=== PATIENT | female | born 2000 | race Caucasian/White ===

== ENCOUNTER → 2023-04-11 | Outpatient (CLI) | payer OTHER ==
--- NOTE | 2023-04-11 13:11 | XR ---
EXAMINATION TYPE: XR lumbar spine 2 or 3V DATE OF EXAM: 04/11/2023 CLINICAL HISTORY: pain TECHNIQUE: Three views of the lumbar spine are submitted. COMPARISON: None. FINDINGS: There are 5 lumbar type vertebral bodies identified. The lumbar spine shows satisfactory alignment w ithout evidence of acute fracture or dislocation. Vertebral body heights are within normal limits. Moderate degenerative narrowing L5-S1. The overlying soft tissue appears unremarkable. IMPRESSION: No acute fracture or dislocation is seen in the lumbar spine. ICD 10 NO FRACTURE, INITIAL EVALUATION
== END | disposition home or self-care (01) ==
LOC: RADXRMAIN 12:39
PROVIDERS: ATTEND Nurse Practitioner
DX: M54.50 Low back pain, unspecified (principal)
CPT/HCPCS: 72100

== ENCOUNTER → 2023-04-18 | Outpatient (CLI) | payer OTHER ==
[2023-04-18 20:12] LABS: Basophils # (A) 0.09 X 10*3/uL (0.00-0.10); Basophils % (A) 1.1 %; Eosinophils # (A) 0.05 X 10*3/uL (0.04-0.35); Eosinophils % (A) 0.6 %; HCT 39.6 % (37.2-46.3); Lymphocytes # (A) 1.94 X 10*3/uL (0.90-5.00); MCH 28.8 pg (27.0-32.0); MCHC 32.8 d/dL (32.0-37.0); MCV 87.6 FL (80.0-97.0); Mean Platelet Volume 9.9 FL (9.5-12.2); Monocytes # (A) 0.65 X 10*3/uL (0.20-1.00); NRBC Per 100 WBC 0 X 10*3/uL (0.00-0.01); Neutrophils # (A) 5.35 X 10*3/uL (1.80-7.70); Neutrophils % (A) 66.1 %; Platelet Count 383 X 10*3/uL (140-440); RBC 4.52 X 10*6/uL (4.10-5.20); RDW 13.3 % (11.5-14.5)
[2023-04-18 21:17] LABS: ALT 23 U/L (8-44); AST 21 U/L (13-35); Albumin 4.5 d/dL (3.8-4.9); Albumin/Globulin Ratio 1.32 Ratio (1.60-3.17); Alkaline Phosphatase 109 U/L (41-126); BUN/Creat Ratio 16.67 Ratio (12.00-20.00); Calcium 9.9 mg/dL (8.7-10.3); Carbon Dioxide 24.4 mmol/L (21.6-31.8); Chloride 100 mmol/L (96-109); Chol/HDL Ratio 3.32 Ratio; Globulin 3.4 d/dL (1.6-3.3); Glucose 85 mg/dL (70-110); LDL Cholesterol,Calculated 104.1 mg/dL (0.0-131.0); Potassium 4.2 mmol/L (3.5-5.5); Sodium 137 mmol/L (135-145); T4, Free (Free Thyroxine) 1.29 ng/dL (0.80-1.80); Total Bilirubin 0.4 mg/dL (0.3-1.2); Total Protein 7.9 d/dL (6.2-8.2)
== END | disposition home or self-care (01) ==
LOC: LABWHC1 13:28
PROVIDERS: ATTEND Nurse Practitioner
DX: Z13.220 Encounter for screening for lipoid disorders (principal); Z79.899 Other long term (current) drug therapy
CPT/HCPCS: 36415; 80053; 80061; 82306; 84439; 84443; 85025

== ENCOUNTER 2023-12-01 13:29 | Emergency (ER) | payer OTHER ==
[2023-12-01 14:05] VITALS: RESP 18; TEMP 98.7
[2023-12-01] MEDS: guaiFENesin-Coden 100-10MG/5ML 10 ML CUP PO ONE (14:42)
--- NOTE | 2023-12-01 14:43 | ED ---
URI HPI - General Chief Complaint: Upper Respiratory Infection Stated Complaint: Upper Resp Time Seen by Provider: 12/01/23 13:56 Source: patient, RN notes reviewed Mode of arrival: ambulatory Limitations: no limitations - History of Present Illness Initial Comments: This is a 23 year old female who presents to the emergency department for coughing, congestion, and shortness of breath. Symptoms began about 2 weeks ago. She was previously started on prednisone and Tessalon Perles for was thought to be bronchitis. She does have a couple days left of the prednisone and Tessalon Perles, however symptoms have persisted. She was then given a prescription for Augmentin, but was only prescribed this yesterday. Denies any history of asthma. She is concerned that symptoms do not seem to be improving. MD Complaint: cough, nasal congestion - Related Data Previous Rx's Medication Instructions Recorded Azithromycin [Zithromax] 250 mg PO DIRECTED 5 Days #6 tab 12/01/23 Codeine Phosphate/Guaifenesin 5 ml PO Q6H PRN #473 ml 12/01/23 [Codeine Phosphate/Guaifenesin 10-100 mg/5 ml] Allergies Allergy/AdvReac Type Severity Reaction Status Date / Time No Known Allergies Allergy Verified 12/01/23 13:51 Review of Systems ROS Statement: Those systems with pertinent positive or pertinent negative responses have been documented in the HPI. ROS Other: All systems not noted in ROS Statement are negative. Past Medical History Past Medical History: No Reported History History of Any Multi-Drug Resistant Organisms: None Reported Additional Past Surgical History / Comment(s): [place] teeth Past Psychological History: No Psychological Hx Reported Smoking Status: Never smoker Past Alcohol Use History: None Reported Past Drug Use History: None Reported General Exam Limitations: no limitations General appearance: alert, in no apparent distress Head exam: Present: atraumatic, normocephalic, normal inspection Respiratory exam: Present: normal lung sounds bilaterally. Absent: respiratory distress, wheezes, rales, rhonchi, stridor Cardiovascular Exam: Present: regular rate, normal rhythm, normal heart sounds. Absent: systolic murmur, diastolic murmur, rubs, gallop, clicks Neurological exam: Present: alert, oriented X3, CN II-XII intact Psychiatric exam: Present: normal affect, normal mood Skin exam: Present: warm, dry, intact, normal color. Absent: rash Course Vital Signs 12/01/23 12/01/23 12/01/23 13:47 15:45 15:53 Temperature 98.7 F Pulse Rate 110 H 107 H 110 H Respiratory 18 Rate Blood Pressure 144/88 O2 Sat by Pulse 98 Oximetry 12/01/23 17:20 Temperature 98.7 F Pulse Rate 98 Respiratory 18 Rate Blood Pressure 108/72 O2 Sat by Pulse 97 Oximetry Medical Decision Making - Medical Decision Making This is a 23-year-old female who presents to the emergency department for coughing, congestion, and shortness of breath. Was pt. sent in by a medical professional or institution? @ -No Did you speak to anyone other than the patient for history? @ -No Did you review nursing and triage notes? @ -Yes, and I agree, it is accurate with regards to the patient's symptoms. Were old charts reviewed? @ -No Differential Diagnosis? @ -Differential Cough: Influenza, Covid, RSV, croup, allergic rhinitis, GERD, pneumonia, bronchitis, COPD, viral pharyngitis, streptococcal pharyngitis, this is not meant to be an all-inclusive list. EKG interpreted by me (3pts min.)? @ -Not obtained X-rays interpreted by me (1pt min.)? @ -Chest x-ray obtained. My interpretation identifies a left lower lobe opacity. CT interpreted by me (1pt min.)? @ -Not obtained U/S interpreted by me (1pt. min.)? @ -Not obtained What testing was considered but not performed? (CT, X-rays, U/S, labs)? Why? @ -None What meds were considered but not given? Why? @ -None Did you discuss the management of the patient with other professionals? @ -No Did you reconcile home meds? @ -No Was smoking cessation discussed for >3mins.? @ -No Was critical care preformed (if so, how long)? @ -No Were there social determinants of health that impacted care today? How? (Homelessness, low income, unemployed, alcoholism, drug addiction, transportation, low edu. Level, literacy, decrease access to med. care, prison, rehab)? @ -No Was there de-escalation of care discussed even if they declined? (Discuss DNR or withdrawal of care, Hospice)? @ -No What co-morbidities impacted this encounter? (DM, HTN, Smoking, COPD, CAD, Cancer, CVA, Hep., AIDS, mental health diagnosis, sleep apnea, morbid obesity)? @ -None Was patient admitted / discharged? @ -Discharged. Covid, influenza, and RSV testing were negative. Chest x-ray reveals a left lower lobe airspace opacity concerning for pneumonia. Cough medication and DuoNeb breathing treatment administered in the emergency department with some improvement in symptoms. Prescription for azithromycin and codeine/guanfacine cough syrup provided with dosing instructions reviewed. She has an albuterol inhaler at home she can continue using if needed. Patient discharged home in stable condition and will follow up with her primary care provider. Undiagnosed new problem with uncertain prognosis? @ -None Drug Therapy requiring intensive monitoring for toxicity (Heparin, Nitro, Insulin, Cardizem)? @ -None Were any procedures done? @ -None Diagnosis/symptom? @ -Pneumonia Acute, or Chronic, or Acute on Chronic? @ -Acute Uncomplicated (without systemic symptoms) or Complicated (systemic symptoms)? @ -Uncomplicated Side effects of treatment? @ -None Exacerbation, Progression, or Severe Exacerbation] @ -Not applicable Poses a threat to life or bodily function? @ -No Return precautions reviewed in depth, the patient is instructed to return to the emergency department with any new, worsening, or concerning symptoms. Patient verbalized understanding. This case was discussed in detail with the attending ED physician, Dr. Henson Presentation, findings, and treatment plan discussed in detail as well. - Lab Data Lab Results 12/01/23 Range/Units 14:40 Influenza Type A (PCR) Not Detected (Not Detectd) Influenza Type B (PCR) Not Detected (Not Detectd) RSV (PCR) Not Detected (Not Detectd) SARS-CoV-2 (PCR) Not Detected (Not Detectd) - Radiology Data Radiology results: report reviewed, image reviewed Disposition Clinical Impression: Pneumonia Disposition: HOME SELF-CARE Instructions (If sedation given, give patient instructions): Pneumonia (ED) Additional Instructions: Return to the emergency department with any new, worsening, or concerning symptoms. Take the new antibiotic as prescribed for 5 days. Continue taking the Augmentin antibiotic prescribed by your primary care provider as well. You can use the cough medication every 4-6 hours as needed. Be aware that this may make you drowsy. Follow up with your primary care provider in 1-2 days. Prescriptions: Codeine Phosphate/Guaifenesin [Codeine Phosphate/Guaifenesin 10-100 mg/5 ml] 5 ml PO Q6H PRN #473 ml PRN Reason: Cough Azithromycin [Zithromax] 250 mg PO DIRECTED 5 Days #6 tab Is patient prescribed a controlled substance at d/c from ED?: Yes When asked, does pt state using other controlled substances?: No If prescribed controlled substance>3 days was MAPS reviewed?: Prescribed <3 Days Referrals: Pebbles Rajput [Primary Care Provider] - 1-2 days Time of Disposition: 15:51
--- NOTE | 2023-12-01 15:08 | XR ---
EXAMINATION TYPE: XR chest 2V DATE OF EXAM: 12/01/2023 3:03 PM CLINICAL INDICATION:Female, 23 years old with history of Cough, YANDY; COMPARISON: None TECHNIQUE: XR chest 2V Frontal and lateral views of the chest. FINDINGS: Lungs/Pleura: T left lower lung airspace opacities here is no evidence of pleural effusion, right foc al consolidation, or pneumothorax. Pulmonary vascularity: Unremarkable. Heart/mediastinum: Cardiomediastinal silhouette is unremarkable. Musculoskeletal: No acute osseous pathology. IMPRESSION: Left lower lobe airspace opacities concerning for pneumonia.e
[2023-12-01] MEDS: IPRATROPIUM-ALBUTEROL 3 ML NEB INHALATION STA (15:45)
[2023-12-01 17:32] VITALS: BP 108/72; PULSE 98
== END 2023-12-01 17:20 | disposition home or self-care (01) ==
LOC: EC 13:29
DX: J18.9 Pneumonia, unspecified organism (principal); Z20.822 Contact with and (suspected) exposure to COVID-19
CPT/HCPCS: 71046; 87636; 94640; 99285

== ENCOUNTER 2024-10-02 19:04 | Emergency (ER) | payer OTHER ==
--- NOTE | 2024-10-02 19:56 | XR ---
EXAMINATION TYPE: XR chest 2V DATE OF EXAM: 10/02/2024 7:38 PM COMPARISON: None. CLINICAL INDICATION: Female, 24 years old with history of sob, TECHNIQUE: XR chest 2V view(s) obtained. FINDINGS: The heart size is normal. The pulmonary vasculature is normal. The lungs are clear. IMPRESSION: 1. No acute pulmonary process. [facility], , 10/02/2024 7:54 PM
--- NOTE | 2024-10-02 20:13 | ED ---
General Adult HPI - General Stated complaint: SOB, Chest pain Time Seen by Provider: 10/02/24 19:15 Source: patient, RN notes reviewed Mode of arrival: ambulatory Limitations: no limitations - History of Present Illness Initial comments: 24-year-old female presents emergency department chief complaint of shortness of breath. Patient states this started after taking tramadol yesterday states it did resolve but states she took tramadol again today and to happen again. Patient states because her chest feel tight. Denies any palpitations states his first time she is ever taken tramadol. Patient denies any fevers or chills no cough or cold-like symptoms today states that she recently had a URI. Denies any leg pain or leg swelling no abdominal complaints no other associated symptoms. - Related Data Previous Rx's Medication Instructions Recorded Azithromycin [Zithromax] 250 mg PO DIRECTED 5 Days #6 tab 12/01/23 Codeine Phosphate/Guaifenesin 5 ml PO Q6H PRN #473 ml 12/01/23 [Codeine Phosphate/Guaifenesin 10-100 mg/5 ml] Allergies Allergy/AdvReac Type Severity Reaction Status Date / Time No Known Allergies Allergy Verified 10/02/24 20:11 Review of Systems ROS Statement: Those systems with pertinent positive or pertinent negative responses have been documented in the HPI. ROS Other: All systems not noted in ROS Statement are negative. Past Medical History Past Medical History: No Reported History History of Any Multi-Drug Resistant Organisms: None Reported Additional Past Surgical History / Comment(s): [place] teeth Past Psychological History: No Psychological Hx Reported Smoking Status: Never smoker Past Alcohol Use History: None Reported Past Drug Use History: None Reported General Exam Limitations: no limitations General appearance: alert, in no apparent distress Head exam: Present: atraumatic, normocephalic, normal inspection Eye exam: Present: normal appearance, PERRL, EOMI. Absent: scleral icterus, conjunctival injection, periorbital swelling ENT exam: Present: normal exam, normal oropharynx, mucous membranes moist Neck exam: Present: normal inspection, full ROM. Absent: tenderness, meningismus, lymphadenopathy Respiratory exam: Present: normal lung sounds bilaterally. Absent: respiratory distress, wheezes, rales, rhonchi, stridor Cardiovascular Exam: Present: regular rate, normal rhythm, normal heart sounds. Absent: systolic murmur, diastolic murmur, rubs, gallop, clicks GI/Abdominal exam: Present: soft, normal bowel sounds. Absent: distended, tenderness, guarding, rebound, rigid Course Vital Signs 10/02/24 20:11 Temperature 98.2 F Pulse Rate 95 Respiratory 22 Rate Blood Pressure 120/58 O2 Sat by Pulse 99 Oximetry EKG Findings - EKG Comments: EKG Findings:: EKG performed at 20: 00 sinus rhythm rate of 83 IN 121 QRS 93 QT/QTc 373/413 - EKG Results: EKG: interpreted by LOLA Medical Decision Making - Medical Decision Making Was pt. sent in by a medical professional or institution (JOHNSON Joseph, BOOK[employer]BILE DRIVER, urgent care, hospital, or correction...) When possible be specific @ -Urgent care Did you speak to anyone other than the patient for history (EMS, parent, family, police, friend...)? What history was obtained from this source @ -No Did you review nursing and triage notes (agree or disagree)? Why? @ -I reviewed and agree with nursing and triage notes Were old charts reviewed (outside hosp., previous admission, EMS record, old EKG, old radiological studies, urgent care reports/EKG's, correction records)? Report findings @ -No old charts were reviewed Differential Diagnosis (chest pain, altered mental status, abdominal pain women, abdominal pain men, vaginal bleeding, weakness, fever, dyspnea, syncope, headache, dizziness, GI bleed, back pain, seizure, CVA, palpatations, mental health, musculoskeletal)? @ -Medication reaction, drug reaction, URI EKG interpreted by me (3pts min.). @ -As above X-rays interpreted by me (1pt min.). @ -X-ray 2 view chest no acute process CT interpreted by me (1pt min.). @ -None done U/S interpreted by me (1pt. min.). @ -None done What testing was considered but not performed or refused? (CT, X-rays, U/S, labs)? Why? @ -None What meds were considered but not given or refused? Why? @ -None Did you discuss the management of the patient with other professionals (professionals i.e. JOHNSON Joseph, BOOKMOBILE DRIVER, lab, RT, psych nurse, social media executive, pyrometer operator, teacher, correction officer penitentiary, case management social worker)? Give summary @ -No Was smoking cessation discussed for >3mins.? @ -No Was critical care preformed (if so, how long)? @ -No Were there social determinants of health that impacted care today? How? (Homelessness, low income, unemployed, alcoholism, drug addiction, transportation, low edu. Level, literacy, decrease access to med. care, retirement, rehab)? @ -No Was there de-escalation of care discussed even if they declined (Discuss DNR or withdrawal of care, Hospice)? DNR status @ -No What co-morbidities impacted this encounter? (DM, HTN, Smoking, COPD, CAD, Cancer, CVA, ARF, Chemo, Hep., AIDS, mental health diagnosis, sleep apnea, morbid obesity)? @ -None Was patient admitted / discharged? Hospital course, mention meds given and route, prescriptions, significant lab abnormalities, going to OR and other pertinent info. @ -[Discharge patient said shortness of breath after taking medications. She is done this twice with recurrent symptoms. Patient is no sign distress vitals a re stable EKG and chest x-ray unremarkable patient discharged in stable condition. Undiagnosed new problem with uncertain prognosis? @ -No Drug Therapy requiring intensive monitoring for toxicity (Heparin, Nitro, Insulin, Cardizem)? @ -No Were any procedures done? @ -No Diagnosis/symptom? @ -Medication reaction Acute, or Chronic, or Acute on Chronic? @ -Acute Uncomplicated (without systemic symptoms) or Complicated (systemic symptoms)? @ -Uncomplicated Side effects of treatment? @ -No Exacerbation, Progression, or Severe Exacerbation? @ -No Poses a threat to life or bodily function? How? (Chest pain, [place], [place], pneumonia, PE, COPD, DKA, ARF, appy, cholecystitis, CVA, Diverticulitis, Homicidal, Suicidal, threat to staff... and all critical care pts) @ -No Disposition Clinical Impression: Medication reaction Disposition: HOME SELF-CARE Condition: Stable Instructions (If sedation given, give patient instructions): Adverse Drug Reaction (ED) Additional Instructions: Continue Benadryl every 6 hours as directed. Please follow-up with your primary care physician. Is patient prescribed a controlled substance at d/c from ED?: No Referrals: Hemal Shelley [Primary Care Provider] - 1-2 days Time of Disposition: 20:32
[2024-10-02 20:14] VITALS: BP 120/58; PULSE 95; RESP 22; TEMP 98.2
[2024-10-02] MEDS: predniSONE 50 MG TAB PO STA (20:47)
[2024-10-02] MEDS: diphenhydrAMINE 50 MG CAP PO STA (20:47)
== END 2024-10-02 20:49 | disposition home or self-care (01) ==
LOC: EC 19:04
DX: R06.02 Shortness of breath (principal); T40.425A Adverse effect of tramadol, initial encounter
CPT/HCPCS: 93005; 71046; 99284; J7512